=== PATIENT | female | born 2000 | race Caucasian/White ===

== ENCOUNTER 2024-06-24 22:04 | Inpatient (IN) | payer BC, SELFPAY ==
[2024-06-24 21:04] VITALS: BMI 37.9
[2024-06-24 21:21] VITALS: PULSE 79; O2SAT 96
[2024-06-24 21:53] LABS: ROM Internal Control Test YES-OK TO RESULT pt. (Internal QC); ROM Patient Test POSITIVE (Negative); Record Kit Lot#, ROM+ K3358
[2024-06-24] MEDS: Lactated Ringers 1,000 ML 50 ML IV (22:50)
[2024-06-24 23:02] LABS: Absolute Neutrophil Count 10.2 X10^3/uL (2.0-7.7); Basophil# 0.04 X10^3/uL; Basophil% 0.3 % (0-1); Eosinophil# 0.04 X10^3/uL; Eosinophils% 0.3 % (0-5); Hematocrit 37.5 % (37-47); Hemoglobin 12.8 g/dL (12.0-15.0); Lymphocyte % 17.6 % (19-41); Mean Corp Hgb Conc 34.1 g/dL (32-36); Mean Corpuscular Hgb 28.4 pg (27.0-32.0); Mean Corpuscular Volume 83.1 fL (81-99); Mean Platelet Vol. 13.2 fl (6.2-12.0); Monocyte# 0.84 X10^3/uL; Monocyte% 6.2 % (0-10); NRBC Flagged by Analyzer 0 % (0-5); Neutrophil # 10.17 X10^3/uL (2.7-7.7); Neutrophil % 74.7 % (47-70); POSITIVE MORPHOLOGY YES; Platelet Count 191 K/mm3 (150-450); RBC Distribution Width CV 14.3 % (11.6-14.6); RBC Distribution Width SD 42.3 fl (35.1-43.9); Red Blood Count 4.51 M/mm3 (4.2-5.4); White Blood Count 13.6 K/mm3 (4.4-11.0)
[2024-06-24 23:39] VITALS: BP 167/95; PULSE 70; O2SAT 98
[2024-06-24 23:40] VITALS: RESP 15; TEMP 36.9
[2024-06-24 23:41] VITALS: BP 147/88; PULSE 70
[2024-06-24 23:41] LABS: Syphilis Antibodies Nonreactive (Nonreactive)
[2024-06-24 23:46] LABS: Differential Indicated SCAN CRITERIA MET; Platelet Morphology LARGE
[2024-06-24 23:48] LABS: Polychromasia RARE
[2024-06-25] VITALS (63 sets, daily range): BP systolic 124–167; BP diastolic 61–96; PULSE 60–100; RESP 15–18; TEMP 35.8–37.5; O2SAT 82–100
[2024-06-25] MEDS: Penicillin G Pot 5,000,000 UNITS in 0.9% Normal Saline (100mL MB+) 100 ML 150 UNITS IV (00:08)
[2024-06-25] MEDS: Penicillin G 3,000,000 Units 50 ML 100 UNITS IV ×3 (04:29→13:25)
[2024-06-25] MEDS: 0.9% Saline Lock 10 ML Syringe IV (05:13)
[2024-06-25] MEDS: fentaNYL 100 MCG/2 ML Ampul IV (05:14)
[2024-06-25] MEDS: Lactated Ringers 1,000 ML 999 ML IV (05:52)
[2024-06-25 06:32] LABS: Hematocrit 39.4 % (37-47); Hemoglobin 13.2 g/dL (12.0-15.0); Mean Corp Hgb Conc 33.5 g/dL (32-36); Mean Corpuscular Hgb 28.3 pg (27.0-32.0); Mean Corpuscular Volume 84.4 fL (81-99); Platelet Count 191 K/mm3 (150-450); RBC Distribution Width CV 14.3 % (11.6-14.6); RBC Distribution Width SD 43.2 fl (35.1-43.9); Red Blood Count 4.67 M/mm3 (4.2-5.4); White Blood Count 22.2 K/mm3 (4.4-11.0)
[2024-06-25] MEDS: fentaNYL-bupivacaine (epidural) 100 ML BAG EPIDURAL ×2 (06:46→11:52)
[2024-06-25 06:52] LABS: AST(SGOT) 29 U/L (<=31); Alanine Aminotransfer ALT/SGPT 15 U/L (<=34); Creatinine, Serum 0.63 mg/dL (0.70-1.20); EST Glomerular Filtration Rate 128 (>60); Estimated Creatinine Clearance 142.76 ml/min (50-250); Uric Acid 4.5 mg/dL (2.6-6.0)
[2024-06-25 07:15] LABS: Protein, Urine (Random) 29.1 mg/dL (0.0-12.0); Protein:Creat Ratio 409 mg/g CRE (0-200)
--- NOTE | 2024-06-25 08:24 | PCM.HP.OB ---
HPI - General General Date of Admission: 06/24/24 Date of Service: 06/25/24 Chief Complaint: PROM HPI Narrative VIVIAN CANNON, is a 23 F who presents with ROM and spontaneous contractions BP mildly elevated. MD/cr elevated but otherwise normal Maternal Data Information Final DANNY: 07[birth year]01/24 Gestational age: 39+1 [facility] Medical History Depression Asthma Home Medications ?Medication ?Instructions ?Recorded ?Last Taken ?Type aspirin 81 mg chewable tablet 1 tab PO DAILY 06/24/24 06/24/24 History (Aspirin Childrens) vits 75-iron 28 mg-folic 1 pkg PO DAILY 06/24/24 06/24/24 History acid 800 mcg-omega3 440 mg oral pack (One Daily ) Allergy/AdvReac Type Severity Reaction Status Date / Time No Known Allergies Allergy Verified 06/24/24 21:45 Surgical History [place] teeth extracted Social History Smoking Status: Never smoker History 1 Elective abortions Hx Para 0 Spontaneous abortions Hx # Term Pregnancies Ectopic pregnancies Hx # Pregnancies Multiple births # of living children NST FHR Rate Baby A Baseline: 145 Variability:: Moderate Accelerations:: 15 x 15 Decelerations:: None NST Reactive:: Yes Vital Signs Vital Signs Vital Signs: 06/24/24 21:21 06/24/24 21:21 06/24/24 23:39 Temperature Temperature Source Pulse Rate 79 Respiratory Rate Blood Pressure 167/95 H BP Systolic 167 BP Diastolic 95 Pulse Ox 96 06/24/24 23:39 06/24/24 23:39 06/24/24 23:39 Temperature Temperature Source Pulse Rate 70 70 Respiratory Rate Blood Pressure BP Systolic BP Diastolic Pulse Ox 98 06/24/24 23:40 06/24/24 23:40 06/24/24 23:40 Temperature 98.4 F Temperature Source Temporal Pulse Rate Respiratory Rate 15 Blood Pressure BP Systolic BP Diastolic Pulse Ox 06/24/24 23:41 06/24/24 23:41 06/25/24 02:04 Temperature Temperature Source Pulse Rate 70 Respiratory Rate Blood Pressure 147/88 H 145/96 H BP Systolic 147 145 BP Diastolic 88 96 Pulse Ox 06/25/24 02:04 06/25/24 02:04 06/25/24 02:04 Temperature Temperature Source Temporal Pulse Rate 60 Respiratory Rate 16 Blood Pressure BP Systolic BP Diastolic Pulse Ox 06/25/24 02:04 06/25/24 02:05 06/25/24 02:05 Temperature 97.6 F L Temperature Source Pulse Rate 68 Respiratory Rate Blood Pressure BP Systolic BP Diastolic Pulse Ox 99 06/25/24 02:42 06/25/24 02:42 06/25/24 02:45 Temperature Temperature Source Pulse Rate 65 Respiratory Rate Blood Pressure 167/87 H 148/78 H BP Systolic 167 148 BP Diastolic 87 78 Pulse Ox 06/25/24 02:45 06/25/24 02:57 06/25/24 02:57 Temperature Temperature Source Pulse Rate 84 68 Respiratory Rate Blood Pressure 146/73 H BP Systolic 146 BP Diastolic 73 Pulse Ox 06/25/24 03:12 06/25/24 03:12 06/25/24 03:27 Temperature Temperature Source Pulse Rate 72 Respiratory Rate Blood Pressure 140/76 H 136/82 H BP Systolic 140 136 BP Diastolic 76 82 Pulse Ox 06/25/24 03:27 06/25/24 03:32 06/25/24 03:32 Temperature Temperature Source Pulse Rate 81 79 Respiratory Rate Blood Pressure BP Systolic BP Diastolic Pulse Ox 98 06/25/24 03:32 06/25/24 03:32 06/25/24 04:30 Temperature 97.5 F L Temperature Source Temporal Temporal Pulse Rate Respiratory Rate Blood Pressure BP Systolic BP Diastolic Pulse Ox 06/25/24 04:30 06/25/24 04:30 06/25/24 04:31 Temperature 97.3 F L Temperature Source Pulse Rate Respiratory Rate 16 Blood Pressure 161/79 H BP Systolic 161 BP Diastolic 79 Pulse Ox 06/25/24 04:31 06/25/24 04:31 06/25/24 04:32 Temperature Temperature Source Pulse Rate 71 Respiratory Rate Blood Pressure 156/82 H BP Systolic 156 BP Diastolic 82 Pulse Ox 95 06/25/24 04:32 06/25/24 05:25 06/25/24 05:25 Temperature Temperature Source Pulse Rate 63 68 Respiratory Rate Blood Pressure 145/85 H BP Systolic 145 BP Diastolic 85 Pulse Ox 06/25/24 05:26 06/25/24 05:26 06/25/24 05:26 Temperature Temperature Source Temporal Pulse Rate 72 Respiratory Rate 16 Blood Pressure BP Systolic BP Diastolic Pulse Ox 06/25/24 05:26 06/25/24 05:26 06/25/24 06:40 Temperature 98.3 F Temperature Source Pulse Rate Respiratory Rate Blood Pressure 131/72 H BP Systolic 131 BP Diastolic 72 Pulse Ox 100 06/25/24 06:40 06/25/24 06:43 06/25/24 06:43 Temperature Temperature Source Pulse Rate 69 77 Respiratory Rate Blood Pressure 132/75 H BP Systolic 132 BP Diastolic 75 Pulse Ox 06/25/24 06:43 06/25/24 06:46 06/25/24 06:46 Temperature Temperature Source Pulse Rate 71 Respiratory Rate 16 Blood Pressure 124/61 H BP Systolic 124 BP Diastolic 61 Pulse Ox 06/25/24 06:46 06/25/24 06:48 06/25/24 06:48 Temperature Temperature Source Pulse Rate 70 Respiratory Rate 16 Blood Pressure BP Systolic BP Diastolic Pulse Ox 100 06/25/24 06:50 06/25/24 06:50 06/25/24 06:50 Temperature Temperature Source Pulse Rate 70 Respiratory Rate 15 Blood Pressure 128/62 H BP Systolic 128 BP Diastolic 62 Pulse Ox 06/25/24 06:53 06/25/24 06:53 06/25/24 06:54 Temperature Temperature Source Pulse Rate 88 Respiratory Rate Blood Pressure 133/63 H BP Systolic 133 BP Diastolic 63 Pulse Ox 100 06/25/24 06:54 06/25/24 06:54 06/25/24 06:58 Temperature Temperature Source Pulse Rate 85 85 Respiratory Rate 16 Blood Pressure BP Systolic BP Diastolic Pulse Ox 06/25/24 06:58 06/25/24 07:00 06/25/24 07:00 Temperature Temperature Source Pulse Rate 84 Respiratory Rate Blood Pressure 131/63 H BP Systolic 131 BP Diastolic 63 Pulse Ox 100 06/25/24 07:00 06/25/24 07:03 06/25/24 07:03 Temperature Temperature Source Pulse Rate 84 Respiratory Rate 16 Blood Pressure BP Systolic BP Diastolic Pulse Ox 99 06/25/24 07:05 06/25/24 07:05 06/25/24 07:05 Temperature Temperature Source Pulse Rate 76 Respiratory Rate 17 Blood Pressure 138/66 H BP Systolic 138 BP Diastolic 66 Pulse Ox 06/25/24 07:08 06/25/24 07:08 06/25/24 07:10 Temperature Temperature Source Pulse Rate 82 Respiratory Rate Blood Pressure 136/66 H BP Systolic 136 BP Diastolic 66 Pulse Ox 99 06/25/24 07:10 06/25/24 07:10 06/25/24 07:10 Temperature Temperature Source Temporal Pulse Rate 83 Respiratory Rate 16 Blood Pressure BP Systolic BP Diastolic Pulse Ox 06/25/24 07:10 06/25/24 07:33 06/25/24 07:33 Temperature 98.5 F Temperature Source Pulse Rate 81 Respiratory Rate Blood Pressure 140/78 H BP Systolic 140 BP Diastolic 78 Pulse Ox 06/25/24 07:33 06/25/24 07:33 06/25/24 07:33 Temperature 97.9 F Temperature Source Temporal Pulse Rate Respiratory Rate 16 Blood Pressure BP Systolic BP Diastolic Pulse Ox Weight Weight: 91.081 kg Body Mass Index (BMI) 37.9 Physical Exam Const alert and no apparent distress General Appearance: cooperative HEENT normocephalic Resp normal respiratory effort Cardio regular rate GI soft to palpation GI Narrative: gravid, nontender, appropriate for gestational age Extremity no calf tenderness General Extremity: edema Skin no wounds Rashes: No rashes noted Psych activity/motor behavior normal Labs Labs Labs: Blood Type A POSITIVE Antibody Screen NEGATIVE Hct 39.4 % (37-47) Hgb 13.2 g/dL (12.0-15.0) Syphilis Total Ab Nonreactive (Nonreactive) Assessment & Plan (1) 39 weeks gestation of : (2) SROM (spontaneous rupture of membranes): (3) Pre-eclampsia: QUALIFIERS: Trimester: third trimester Qualified Code(s): O14.93 - Unspecified pre-eclampsia, third trimester COMMENT: MD/cr 407 PLAN: Plan Epidural prn Pit prn GBS positive- pcn
[2024-06-25] MEDS: Lactated Ringers 1,000 ML 200 ML IV (11:52)
[2024-06-25] MEDS: LACTATED RINGERS 500 ML 999 ML IV (12:05)
[2024-06-25] MEDS: Oxytocin 10 UNITS/ML Vial IM (14:37)
[2024-06-25] MEDS: Oxytocin 15 Units/NS 250ml 15 UNITS/250 ML IV.SOLN 83 UNITS IV (14:39)
[2024-06-25] MEDS: Ibuprofen 600 MG Tablet PO (18:40)
--- NOTE | 2024-06-25 19:59 | OB.VAGDELI_ITS ---
Assessment & Plan (1) Pre-eclampsia: QUALIFIERS: Trimester: third trimester Qualified Code(s): O14.93 - Unspecified pre-eclampsia, third trimester COMMENT: MO/cr 407 (2) SROM (spontaneous rupture of membranes): (3) Positive GBS test: (4) (spontaneous vaginal delivery): Maternal Data Information Final DANNY: 07/01/24 Gestational age: 39+1 Vaginal Delivery Maternal Presentation Maternal Presentation: Active Labor and Spontaneous Rupture of Membranes Vaginal Delivery Information Procedure Performed: Spontaneous Vaginal Delivery Surgeon/Practitioner: Paula Mcdonnell Date of Procedure: 06/25/24 Pre-Procedure Diagnosis: SROM Post-Procedure Diagnosis: Type of anesthesia: Epidural Estimated Blood Loss: 100 cc Time of Delivery: 14:34 Findings Description of procedure: Presented with spontaneous ROM. GBS positive. Received adequate doses of PCN. Patient progressed to complete without augmentation. She pushed for about 2.5 hours and delivered over an intact peritoneum. The anterior and posterior shoulders delivered easily followed by the rest of the body. There was a cord against the abdomen and chest. The infant cried upon delivery and was placed on the maternal abdomen. The cord was clamped and cut after one minute. The placenta delivered with gentle traction. There was a 1st laceration that was repaired with 2-0 Vicryl. All sponge, needle and instrument counts were correct. Presentation: Vertex and ARMANDO Amniotic Membrane Rupture Type: Spontaneous Amniotic Fluid Description: Clear Placental Delivery Description: Spontaneous Placenta Disposition: [facility] Specimen collected: No Cord Vessel Description: 3 Vessels Cord Entanglement: None Infant A Gender: Male (1 minute): 8 (5 minute): 9 Delayed Cord Clamping: Yes Log Clerk cardiopulmonary technician and eeg tech: No Post Vaginal Deli Medications given after delivery: IV Pitocin and IM Pitocin Episiotomy Description: None Laceration: Midline and 1st degree Complication Complications: No
[2024-06-25] MEDS: Acetaminophen 500 MG Tablet 1000 MG PO (21:15)
[2024-06-26] VITALS (12 sets, daily range): BP systolic 129–151; BP diastolic 65–83; PULSE 68–96; RESP 14–16; TEMP 36.3–36.9; O2SAT 78–98
[2024-06-26] MEDS: Ibuprofen 600 MG Tablet PO ×3 (01:30→23:56)
--- NOTE | 2024-06-26 06:36 | PN.OBGYN_ITS ---
Subjective Subjective Doing well. Ambulating and voiding without difficulty. Mild lochia. Breast feeding. Low mild range BP. No FITZGERALD Objective Data Objective Data Vital Signs: Vital Signs Temp Pulse Resp BP Pulse Ox O2 Del Method 97.9 F 86 16 144/83 H 98 Room Air 06/26/24 05:09 06/26/24 05:09 06/26/24 05:09 06/26/24 05:09 06/26/24 05:09 06/26/24 05:09 Oxygen Delivery Method Room Air Weight: 91.081 kg Body Mass Index (BMI) 37.9 Intake & Output: Intake and Output for Last 24 Hours 06/24/24 06/25/24 06/26/24 23:59 23:59 23:59 Intake Total 3051.86 / 3051.86 Output Total 1800 / 1800 300 / 300 Balance 1251.86 / 1251.86 -300 / -300 Lab / Micro Data 06/25/24 06:15 06/25/24 06:15 Labs: Laboratory Results - last 24 hr 06/25/24 05:53: U Random Total Protein 29.1 H, Urine Creatinine 71.20, P rotein/Creatinin Ratio 409 H 06/25/24 06:15: Creatinine 0.63 L, Estim Creat Clear Calc 142.76, Est GFR (MDRD) Non-Af 128, Uric Acid 4.5, AST 29, ALT 15 ROS Constitutional Constitutional: Denies headache(s) Cardiovascular Cardiovascular: Denies chest pain or dyspnea Gastrointestinal Gastrointestinal: Denies nausea or vomiting Genitourinary Genitourinary: Denies dysuria Physical Exam Const alert, oriented x3 and no apparent distress General Appearance: cooperative and comfortable Eyes PERRL and EOMs intact bilaterally Resp normal respiratory effort GI soft to palpation and non-tender Uterus Palpation: uterus fundus firm ( below umbilicus) Extremity normal to inspection and full ROM Neuro oriented x3 and CN's II-XII intact bilaterally Psych mental status grossly normal Assessment & Plan (1) (spontaneous vaginal delivery): (2) Pre-eclampsia: QUALIFIERS: Trimester: third trimester Qualified Code(s): O14.93 - Unspecified pre-eclampsia, third trimester COMMENT: [place]/cr 407 PLAN: Continue to monitor BP PLAN: Plan Routine care
[2024-06-26] MEDS: Senna/Docusate Sodium 1 Tablet PO (11:59)
[2024-06-26] MEDS: Acetaminophen 500 MG Tablet 1000 MG PO (20:00)
[2024-06-27 03:12] VITALS: BP 126/70; PULSE 75; RESP 14; TEMP 36.5; O2SAT 98
[2024-06-27 03:23] VITALS: BP 126/70; PULSE 73; O2SAT 98
[2024-06-27 07:55] VITALS: BP 132/77; PULSE 71; RESP 16; TEMP 37.1
[2024-06-27 07:58] VITALS: BP 132/77; PULSE 71
[2024-06-27] MEDS: Senna/Docusate Sodium 1 Tablet PO (08:06)
[2024-06-27] MEDS: Ibuprofen 600 MG Tablet PO (08:06)
--- NOTE | 2024-06-27 08:10 | PCM.PROGNOTE ---
Subjective Subjective patient seen at bedside, doing well. Patient reports good pain control. lochia mild. denies FITZGERALD, visual changes. Breast feeding w/o difficulty. Objective Data Objective Data Vital Signs: Vital Signs Temp Pulse Resp BP Pulse Ox O2 Del Method 97.7 F L 71 14 132/77 H 98 Room Air 06/27/24 03:12 06/27/24 07:58 06/27/24 03:12 06/27/24 07:58 06/27/24 03:23 06/27/24 03:12 Oxygen Delivery Method Room Air Weight: 91.081 kg Body Mass Index (BMI) 37.9 Intake & Output: Intake and Output for Last 24 Hours 06/25/24 06/26/24 06/27/24 23:59 23:59 23:59 Intake Total 3051.86 / 3051.86 Output Total 1800 / 1800 300 / 300 Balance 1251.86 / 1251.86 -300 / -300 Lab / Micro Data 06/25/24 06:15 06/25/24 06:15 Physical Exam Narrative Abd: fundus firm below umbilicus Const alert and oriented x3 General Appearance: cooperative HEENT normocephalic Neck General: normal visual inspection GI soft to palpation and non-distended GI Narrative: Fundus firm Extremity normal to inspection and no calf tenderness Skin no rashes or lesions noted Neuro oriented x3 and CN's II-XII intact bilaterally Psych mental status grossly normal Assessment & Plan Assessment/Plan (1) (spontaneous vaginal delivery): (2) Pre-eclampsia: QUALIFIERS: Trimester: third trimester Qualified Code(s): O14.93 - Unspecified pre-eclampsia, third trimester (3) Positive GBS test: PLAN: Plan PPD# 2 , Doing well- pre eclampsia Routine care pain mgmt ambulation dc home time spent with patient face to face on day of discharge was <30min
--- NOTE | 2024-06-27 08:13 | DCINST_ITS ---
Discharge Instructions Diet Discharge Diet: No restrictions DC O2, CPAP, BIPAP needs Home O2 Discharge instructions: No Dressing / Incision May resume sexual activity in: 6-8 weeks Dressing / Incision Call your doctor if you observe: Fever of 101 or Higher, Inability to urinate, Using more than 1 pad per hour and Uncontrolled pain Follow Up Care Please Follow Up With: Paula Mcdonnell MD When: 2-3 days for BP check due to PRE Eclampsia-then 6 weeks post . [phone] Test Results: Test results from this visit will be discussed in further detail at your follow- up appointment, if applicable. Discharge Plan Admission Admit Date/Time: 06/24/24 22:04 Attending Provider: Paula Mcdonnell Primary Care Provider: Care Physician,Sakshi Primary Discharge Orders/Prescriptions Prescriptions: No Action aspirin [Aspirin Childrens] 81 mg tablet,chewable 1 tab PO DAILY One Daily [id number] mg-mcg-mg combo pack 1 pkg PO DAILY Referrals / Follow Up: Care Physician,Sakshi Primary [Primary Care Provider] -
--- NOTE | 2024-06-27 08:22 | DCINST_ITS ---
Discharge Instructions Diet Discharge Diet: No restrictions DC O2, CPAP, BIPAP needs Home O2 Discharge instructions: No Dressing / Incision May resume sexual activity in: 6-8 weeks Dressing / Incision Call your doctor if you observe: Fever of 101 or Higher, Inability to urinate, Using more than 1 pad per hour and Uncontrolled pain Follow Up Care Please Follow Up With: Paula Mcdonnell MD Test Results: Test results from this visit will be discussed in further detail at your follow- up appointment, if applicable. Discharge Plan Admission Admit Date/Time: 06/24/24 22:04 Attending Provider: Paula Mcdonnell Primary Care Provider: Care PhysicianSakshi Primary Discharge Orders/Prescriptions Prescriptions: New acetaminophen 500 mg Tablet 1,000 mg PO Q6H PRN PRN (Reason: Pain 1-10 Or Fever) Qty: 0 0RF ibuprofen 600 mg Tablet 600 mg PO Q6H PRN PRN (Reason: Pain Score 1-10) Qty: 0 0RF Continued One Daily [id number] mg-mcg-mg combo pack 1 pkg PO DAILY Discontinued aspirin [Aspirin Childrens] 81 mg tablet,chewable 1 tab PO DAILY Referrals / Follow Up: Care Physician,No Primary [Primary Care Provider] - Disposition Disposition (needs filled in before D/C Order can be placed): Home, Self Care
--- NOTE | 2024-06-27 13:17 | CASEMGMT ---
Social Work Assessment Labor and Delivery Unit Patient [address]: [address] [place], [place] [address] [address] Phone number: [phone] Date of Referral: 06/26/24 Time of Referral:? 737 Referred By: Dr. Mcdonnell Date of Intervention: ??06/27/24 Time of Intervention:? 1019 Reason for Referral:? hx of depression Sw completed chart review and acknowledges social work consult. Sw presented to bedside and introduced self to mother of baby (MOB- Nova) and father of baby (FOB- Scott). Sw explained reason for sw involvement and completed psychosocial assessment. History obtained from: medical records, MOB and FOB Household composition: Currently residing in the family home is MOB and FOB. Ona baby to be included in residence when ready for discharge. Parents deny any problems or concerns with housing, reporting it to be safe and secure. Patient's parent/guardian status:? Parents have been together for 3 years [facility] No concerns reported of domestic violence or intimate partner violence. This is first baby for both parents. ? Medical History: ?MONSERRAT is 23 year old female who is 1, para 0- now 1 following labor and delivery of . MONSERRAT received routine care during with [facility]. MONSERRAT presented to hospital in active labor and delivered baby via vaginal delivery on 06/25/24. Baby boy, named Ovi Davidson, was born weighing 7lb 8oz with apgars of 9 and 9 at one and five minutes of life, respectfully. MONSERRAT states that she is breast feeding and reports baby will be followed by Dr. Meza for pediatrics. Educational Status:? Both parents graduated from high school and have obtained Bachelor's degrees. No problems with reading, learning or comprehension. Financial Status: Both parents are gainfully employed outside of the home. FOB works at [employer] and is provided 6 weeks of work off for paternity leave. 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 Infant Supplies: All necessary baby supplies obtained, including: car seat, safe sleep space, clothes, diapers and wipes. Childcare/Caregiver(s):?MOB will be the primary caregiver to baby along with FOB when he is not working. When both parents are working they have several people who will be able to help with childcare. Transportation:?? Parents both have their drivers license and reliable means of transportation. No barriers. Programs/Agencies Involved: ?Parents are not connected to any community resources that provide financial assistance. Children Services/Legal Issues: No history with children services. NO problems or concerns warranting referral to be made. ??? Behavioral Health Issues: ??Mental Health History:?both parents have history of anxiety and depression. FOSoledad states that his anxiety tends to be more social anxiety, and his depression is mostly seasonal during the winter months. FOB reports that he is connected to counseling supports at [facility] where he meets with a counselor regularly. MOB states that she also has anxiety and depression but meets with a counselor to help her manage symptoms and incorporate healthy coping skills. MOB reports that her anxiety is just over regular day to day things. MOB denies ever having thoughts of self harm or worthlessness. MOB reports that she nor FOSoledad require medication to help them manage their symptoms, counseling has helped each other them. ?? Substance Use History:?Parents deny substance use history prior to and during . ? Family History:?No family history of substance use or significant mental health diagnoses reported. ??? Drug Screens: No drug screens observed while completing chart review. Family/Social Stressors:? Parents deny any issues, concerns or stressors at this time. Support Systems: MONSERRAT identifies FOB and maternal grandparents as her biggest supports at this time. Depression/Shaken Baby/Safe Sleeping: Makeda educated parents on signs and symptoms of baby blues and depression and anxiety. MOB states that she is knowledgeable about these terms. FOB states that he would be able to recognize if MOB were struggling and would know how to help and support her. MOB reports to feeling fine during , stating that the only time she felt anxious was the few days leading up to delivery and not knowing what to expect during that time. Parents state that being connected with counseling will also be helpful during this period. MOB reports feeling a hensley and connection with baby currently, and denies feeling anxious, sad, down or depressed. Makeda educated parents on shaken baby prevention and ABCs of safe sleep, parents express understanding. ASSESSMENT:?MOB and baby admitted following labor and delivery of . MOB sitting on bed comfortably and FOB gathering belongings in preparation for discharge. Baby was sleeping comfortably in the bedside bassinet. Both parents looked at baby lovingly sporadically during conversation. Parents report to feeling a strong hensley with each other and happy to be parents. MOB and FOB both report having mental health history being positive for anxiety and depression. Neither parent is prescribed medication to help them manage their mental health, but they are connected to mental health supports. Parents also report to having a lot of natural supports in place with family and friends. Parents were talkative and engaging throughout conversation. Parents made and maintained eye contact with sw. PLAN:?? No other services requested or indicated. MOB and baby to be discharged when medically ready. Parents were provided literature regarding: signs and symptoms of baby blues and mood and anxiety disorders, Help Me Grow, shaken baby prevention, ABCs of safe sleep and a list of county resources that are available for them should any needs present themselves. Gallito Abad, EDM OPERATOR, PULP MAKER
== END 2024-06-27 12:05 | disposition home or self-care (01) | DRG 807 ==
LOC: WP 22:05
PROVIDERS: Advanced Practice Midwife; Admitting Provider Obstetrics & Gynecology; Referring Provider Obstetrics & Gynecology; Visit Provider Obstetrics & Gynecology
DX: O14.94 Unspecified pre-eclampsia, complicating childbirth (principal); Z37.0 Single live birth; O70.0 First degree perineal laceration during delivery; O99.824 Streptococcus B carrier state complicating childbirth; Z79.82 Long term (current) use of aspirin; Z3A.39 39 weeks gestation of pregnancy
CPT/HCPCS: 36415; 59025; 59050; 82565; 82570; 84112; 84156; 84450; 84460; 84550; 85025; 85027; 86780; 86850; 86900; 86901; 99221; A4216; G0378